=== PATIENT | male | born 1990 | race African-American/Black ===

== ENCOUNTER 2024-03-06 09:40 | Emergency (ER) | payer OTHER ==
[~2024-03-06] VITALS: Ht 180.3 cm; Wt 86.5 kg
[2024-03-06 09:41] VITALS: BP 141/84; TEMP 97.8; O2SAT 97
== END 2024-03-06 14:55 | disposition home or self-care (01) ==
LOC: M ED 09:40
DX: S92.344A Nondisplaced fracture of fourth metatarsal bone, right foot, initial encounter for closed fracture (principal); S92.331D Displaced fracture of third metatarsal bone, right foot, subsequent encounter for fracture with routine healing; Y92.9 Unspecified place or not applicable; Y93.9 Activity, unspecified; Y99.0 Civilian activity done for income or pay